=== PATIENT | female | born 1960 | race African-American/Black ===

== ENCOUNTER 2025-03-09 07:47 | Outpatient (OUT) | payer MEDICARE, SELFPAY ==
--- NOTE | 2025-03-09 07:54 | ECG_ITS ---
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 Measurements Intervals [place] Rate: 72 P: 181 ME: 145 QRS: -10 QRSD: 89 T: 43 QT: 364 QTc: 401 Interpretive Statements NORMAL SINUS RHYTHM POSSIBLE RIGHT VENTRICULAR CONDUCTION DELAY [RSR (QR) IN V1/V2] VOLTAGE CRITERIA FOR LVH [MEETS CRITERIA IN ONE OF: R(aVL), S(V1), R(V5), R(V5/V6)+S(V1)] No previous ECG available for comparison Electronically Signed On 03-09-2025 20:43:05 EDT by KEMAR MCKEON M.D.
[2025-03-09 09:04] LABS: Basophils Percent Auto 0.7 % (0.2-2.0); Eosinophils Absolute Auto 0.1 10^3/uL (0.0-0.7); Eosinophils Percent Auto 2.9 % (0.9-7.0); Hemoglobin 14.2 g/dL (12.0-16.0); Immature Granulocytes Abs Auto 0.01 10^3/uL (0.00-0.03); Immature Granulocytes Pct Auto 0.2 % (0.0-0.5); Lymphocytes Absolute Auto 1.3 10^3/uL (1.2-3.8); Lymphocytes Percent Auto 29.4 % (20.5-60.0); Mean Corpuscular HGB Conc 31.6 g/dL (29.9-35.2); Mean Platelet Volume 10.1 fL (9.5-13.5); Monocytes Absolute Auto 0.3 10^3/uL (0.3-0.8); Monocytes Percent Auto 7.6 % (1.7-12.0); Neutrophils Absolute Auto 2.6 10^3/uL (1.4-6.5); Neutrophils Percent Auto 59.2 % (43.0-75.0); Platelet Count 230 10^3/uL (150-450); Red Blood Count 4.89 10^6/uL (4.20-5.40); Red Cell Distribution Width 13.6 % (11.0-15.0); White Blood Count 4.5 10^3/uL (4.0-11.0)
== END 2025-03-09 07:48 | disposition home or self-care (01) ==
LOC: PST 07:48
PROVIDERS: PCP Family Medicine; Visit Provider Otolaryngology
DX: Z01.810 Encounter for preprocedural cardiovascular examination (principal); Z01.812 Encounter for preprocedural laboratory examination; H69.92 Unspecified Eustachian tube disorder, left ear
CPT/HCPCS: 85025; 93005; G0463

== ENCOUNTER 2025-03-23 09:23 | Day surgery (SDC) | payer MEDICARE, SELFPAY ==
[2025-03-09 08:27] VITALS: BP 141/86; PULSE 79; TEMP 36.3; O2SAT 98; BMI 33.9
--- NOTE | 2025-03-09 08:57 | PM.PRESUREVA ---
History of Present Illness History of Present Illness Chief complaint: Left ETD Narrative: Ms. Lupis Weldon is a pleasant 64-year-old female who presents to presurgical testing who presents with complaints of decreased hearing in her left ear and ear problems . She is scheduled for left myringotomy with insertion of ventilation tube, T-tube, nasal endoscopic for left eustachian tube dysfunction with Dr. Kang on 03/23/2025. Review of Systems ROS Narrative REVIEW OF SYSTEMS: Negative except as stated in HPI, ten or more systems reviewed. Constitutional: No fever, chills, weakness ENT: No sore throat or epistaxis complains of decreased hearing in the left ear Cardiovascular: No edema, chest pain, palpitations, or activity intolerance Respiratory: No shortness of breath, cough, or wheezing Musculoskeletal: No joint pain or swelling Gastrointestinal: No abdominal pain, constipation, diarrhea, or vomiting Genitourinary: No dysuria or hematuria Neurological: No numbness, tingling, weakness, or headache Psychiatric: No mood changes PFSH PFSH Medical History (Updated 03/09/25 @ 08:34 by Jesika Cornelius) Hearing loss ?H91.90 - Unspecified hearing loss, unspecified ear (ICD-10) Seasonal allergies ?J30.2 - Other seasonal allergic rhinitis (ICD-10) GERD (gastroesophageal reflux disease) ?K21.9 - Gastro-esophageal reflux disease without esophagitis (ICD-10) Surgical History (Updated 03/09/25 @ 08:33 by Jesika Cornelius) H/O left wrist surgery ?Z98.890 - Other specified postprocedural states (ICD-10) History of section ?Z98.891 - History of uterine scar from previous surgery (ICD-10) History of myringotomy ?Z98.890 - Other specified postprocedural states (ICD-10) Family History (Updated 03/09/25 @ 08:28 by Jesika Cornelius) Other Family history of Alzheimer's disease Family history of bone cancer Social History (Updated 03/09/25 @ 08:36 by Jesika Cornelius) Within the past year, how often did you have a drink containing alcohol: never Score interpretation: A score less than 3 is consistent with normal alcohol consumption. Smoking status: Former smoker Non-prescribed substance use: denies use Previous occupational history: Direct Service provider / Retired Highest level of school completed/degree received: some college, no degree Meds Home Medications and Allergies Home Medications ?Medication ?Instructions ?Recorded ?Confirmed ?Type fluticasone propionate 50 1 spray intranasal PRN allergy 03/09/25 History mcg/actuation nasal symptoms spray,suspension phentermine 37.5 mg capsule 37.5 mg PO DAILY 03/09/25 03/09/25 History Allergies Allergy/AdvReac Type Severity Reaction Status Date / Time No Known Drug Allergies Allergy Verified 03/09/25 08:24 Exam Narrative Exam Narrative: Nurses note and vital signs reviewed and patient is not hypoxic. General: The patient appears well and in no apparent distress. Patient is resting comfortably on cart. Skin: Warm, dry, no pallor noted. There is no rash noted. Head: Normocephalic, atraumatic Eye: Normal conjunctiva, no drainage, EOMI. PERRL Ears, Nose, Mouth, and Throat: oral mucosa is moist. Nares patent. Mouth without vesicles. Ear canals patent. Tm's without Erythema with left TM effusion and notable scarring to bilateral tympanic membrane Cardiovascular: Regular Rate and Rhythm Respiratory: Patient is in no distress, no accessory muscle use, lungs are clear to auscultation, no wheezing, rales or rhonchi Back: non-tender, no CVA tenderness bilaterally to percussion. GI: Normal bowel sounds, no tenderness to palpation, no masses appreciated. No rebound, guarding, or rigidity noted. Musculoskeletal: The patient has no evidence of calf tenderness, no pitting edema, symmetrical pulses noted bilaterally Neurological: A&O x4, normal speech Psychiatric: Cooperative Constitutional Vital Signs, click to edit/add: Last Vital Signs Temp 97.3 F L 03/09/25 08:27 Pulse 79 03/09/25 08:27 Resp 20 03/09/25 08:27 BP 141/86 03/09/25 08:27 Pulse Ox 98 03/09/25 08:27 O2 Del Method Room Air 03/09/25 08:27 Assessment and Plan Assessment and Plan (1) Dysfunction of left eustachian tube: Plan Patient with left eustachian tube dysfunction she is scheduled for left myringotomy with insertion of ventilation tube, T-tube, nasal endoscopy with Dr. Kang on March 23, 2025
[2025-03-23] VITALS (10 sets, daily range): BP systolic 114–144; BP diastolic 62–95; PULSE 75–88; TEMP 36.2–36.4; O2SAT 92–100; BMI 33.9
[2025-03-23] MEDS: LACTATED RINGER'S SOLUTION 1,000 ML 50 ML IV (10:16)
--- NOTE | 2025-03-23 10:45 | OP_ITS ---
OPERATION DATE: ??03/23/2025 ? PRIMARY CARE PHYSICIAN:? Abdulkadir Wayne D.O. ? SURGEON:? Syl Kang M.D. ? PREOPERATIVE DIAGNOSIS:? Left eustachian tube dysfunction and left otitis media with effusion. ? POSTOPERATIVE DIAGNOSIS:? Left eustachian tube dysfunction and left otitis media with effusion. ? PROCEDURE:? Left myringotomy and tube with microdissection placement of a T-tube and a nasal endoscopy. ? ANESTHESIA:? General LMA ? COMPLICATIONS:? None. ? FINDINGS:? Left serous effusion and no nasopharyngeal path evident on endoscopy. ? INDICATIONS: This 64-year-old woman presented with left otitis media with effusion, unresponsive to aggressive medical management. ? PROCEDURE:? Patient identified in the holding area and taken back to the OR where she was placed in the supine position.? After induction of general anesthesia by LMA, Afrin soaked pledgets were placed inside the nose, and attention turned to the left ear.? The ear was approached with the otomicroscope.? An anterior radial myringotomy was performed and a modified Luther?s T-tube was folded, inserted through the myringotomy and opened in the middle ear using microdissection. ?Attention was then returned to the nose.? The Afrin was removed and a 30 degree nasal endoscope was passed through the left nasal cavity, into the nasopharynx, and there was no significant pathology found. ?Patient was then awakened and taken to the recovery room in good condition. MELISA
[2025-03-23] MEDS: OXYMETAZOLINE HCL 0.05% NASAL SPRAY 2 SPRAY NS (10:46)
[2025-03-23] MEDS: CIPROFLOXACIN HCL/DEXAMETH 0.3%/0.1% OTIC SUSP 150 DROP/7.5 ML BOTTLE OT (10:51)
--- NOTE | 2025-03-23 11:59 | PC.NURSE ---
No active left ear drainage noted
== END 2025-03-23 12:01 | disposition home or self-care (01) ==
PROVIDERS: PCP Family Medicine; Visit Provider Otolaryngology
PROC: (CPT 31231; principal; 2025-03-23 11:00)
DX: H69.92 Unspecified Eustachian tube disorder, left ear (principal); H65.92 Unspecified nonsuppurative otitis media, left ear; Z87.891 Personal history of nicotine dependence; K21.9 Gastro-esophageal reflux disease without esophagitis
CPT/HCPCS: 31231; 69436; 36415; J1100; J2250; J2405; J2704; J3010